=== PATIENT | male | born 1990 | race American Indian/Alaskan Native ===

== ENCOUNTER → 2018-09-06 | Outpatient (REF) | payer MEDICAID ==
[~2018-09-06] MED LIST: AUGM875T28 PO
[2018-09-06 20:08] LABS: ALBUMIN 4.4 GM/DL (3.2-5.2); ALT/SGPT 48 U/L (12-78); BILIRUBIN,TOTAL 0.9 MG/DL (0.2-1.0); BLOOD UREA NITROGEN 10 MG/DL (7-18); CALCIUM LEVEL 9.7 MG/DL (8.5-10.1); CARBON DIOXIDE LEVEL 26 MEQ/L (21-32); CHLORIDE LEVEL 97 MEQ/L (98-107); CHOLESTEROL LEVEL 181 MG/DL (<200); CREATININE FOR GFR 0.77 MG/DL (0.70-1.30); FREE T4 1.51 NG/DL (0.76-1.46); GLOMERULAR FILTRATION RATE > 60.0 (>60); GLUCOSE, FASTING 77 MG/DL (70-100); HDL CHOLESTEROL 58 MG/DL (>40); LDL CHOLESTEROL 114 MG/DL (<100); NON-HDL-C 123 MG/DL; POTASSIUM SERUM 4.1 MEQ/L (3.5-5.1); SODIUM LEVEL 134 MEQ/L (136-145); TRIGLYCERIDES LEVEL 44 MG/DL (<150)
[2018-09-06 20:11] LABS: BASO % 0.2 % (0.0-1.0); EOS # 0.1 10^3/uL (0.0-0.50); EOS % 0.6 % (0.0-3.0); HEMATOCRIT 49.9 % (42.0-52.0); HEMOGLOBIN 16.5 g/dl (13.5-17.5); LYMPH # 0.9 10^3/uL (1.5-6.5); LYMPH % 9.9 % (24.0-44.0); MEAN CORPUSCULAR HEMOGLOBIN 29.2 pg (27.0-33.0); MEAN CORPUSCULAR HGB CONC 33.1 g/dl (32.0-36.5); MEAN CORPUSCULAR VOLUME 88.3 fl (80.0-96.0); MONO # 0.7 10^3/uL (0.0-0.8); MONO % 7.4 % (0.0-5.0); NEUTROPHILS # 7.7 10^3/uL (1.8-7.7); NEUTROPHILS % 81.7 % (36.0-66.0); PLATELET COUNT, AUTOMATED 234 10^3/uL (150-450); RED BLOOD COUNT 5.65 10^6/uL (4.30-6.10); TOTAL 25(OH) VITAMIN D 15.3 NG/ML (30.0-100.0); WHITE BLOOD COUNT 9.4 10^3/uL (4.0-10.0)
[2018-09-06 21:30] LABS: HEMOGLOBIN A1c 5.5 %
[2018-09-07 09:48] LABS: HEPATITIS B SURFACE ANTIBODY POSITIVE (POSITIVE)
[2018-09-07 09:55] LABS: HEPATITIS B SURFACE ANTIGEN NEGATIVE (NEGATIVE)
[2018-09-07 10:23] LABS: HIV 1&2 SCREEN CENTAUR NEGATIVE (NEGATIVE)
[2018-09-11 08:06] LABS: HEPATITIS A IgG TOTAL Positive (Negative); HEPATITIS B CORE ANTIBODY IGG Negative (Negative); HEPATITIS C QUANTITATION 2795110 IU/mL (.); HEPATITIS C VIRUS GENOTYPE 1b (.); HSV IgM TYPES 1&2 <0.91 Ratio (0.00-0.90); Lyme Disease IgG/IgM Antibodie <0.91 ISR (0.00-0.90); Lyme Disease IgM Ab Quantitati <0.80 index (0.00-0.79)
== END ==
LOC: M LAB REF 17:40
PROVIDERS: ATTEND Family Medicine
DX: F11.21 Opioid dependence, in remission (principal); Z13.228 Encounter for screening for other metabolic disorders; B19.20 Unspecified viral hepatitis C without hepatic coma

== ENCOUNTER 2018-09-15 06:55 | Emergency (ER) | payer MEDICAID ==
[~2018-09-15] VITALS: Ht 167.6 cm; Wt 37.3 kg
[2018-09-15 06:56] VITALS: BP 148/81
[2018-09-15] MEDS ORDERED: AUGM875T28 PO (07:23)
[2018-09-15] MEDS ORDERED: IBUPROFEN 600 MG TAB PO ONE (07:30)
== END 2018-09-15 07:33 | disposition home or self-care (01) ==
LOC: M ED 06:55
DX: K02.9 Dental caries, unspecified (principal); K05.10 Chronic gingivitis, plaque induced; K13.79 Other lesions of oral mucosa; B19.20 Unspecified viral hepatitis C without hepatic coma; F17.210 Nicotine dependence, cigarettes, uncomplicated

== ENCOUNTER 2018-10-13 21:28 | Inpatient (IN) | payer MEDICAID, SELFPAY ==
[~2018-10-13] VITALS: Ht 167.6 cm; Wt 75.0 kg
[2018-10-13 21:29] VITALS: BP 165/105
[2018-10-13] MEDS ORDERED: CLINDAMYCIN 600 MG in APPROPRIATE DILUENT 1 EA IV ONE (22:15)
[2018-10-13] MEDS ORDERED: NS 1,000 ML IV ONE (22:15)
[2018-10-13] MEDS ORDERED: KETOROLAC 30 MG/ML VIAL (J1885) IV ONE (22:15)
[2018-10-13 22:51] LABS: HEMOGLOBIN 12.7 g/dl (13.5-17.5); MEAN CORPUSCULAR HEMOGLOBIN 29.5 pg (27.0-33.0); MEAN CORPUSCULAR HGB CONC 34.3 g/dl (32.0-36.5); PLATELET COUNT, AUTOMATED 258 10^3/uL (150-450); WHITE BLOOD COUNT 20.9 10^3/uL (4.0-10.0)
[2018-10-13 23:33] LABS: ALT/SGPT 19 U/L (12-78); BILIRUBIN,DIRECT 0.1 MG/DL (0.0-0.2); BILIRUBIN,TOTAL 0.2 MG/DL (0.2-1.0); BLOOD UREA NITROGEN 8 MG/DL (7-18); CALCIUM LEVEL 8.2 MG/DL (8.5-10.1); CARBON DIOXIDE LEVEL 30 MEQ/L (21-32); CHLORIDE LEVEL 99 MEQ/L (98-107); CREATININE FOR GFR 0.61 MG/DL (0.70-1.30); GLOMERULAR FILTRATION RATE > 60.0 (>60); GLUCOSE, FASTING 146 MG/DL (70-100); POTASSIUM SERUM 3.2 MEQ/L (3.5-5.1); SODIUM LEVEL 136 MEQ/L (136-145); TOTAL PROTEIN 6.7 GM/DL (6.4-8.2)
[2018-10-13] MEDS ORDERED: ISOVUE-370 76% 100ML VIAL (Q9967) As Ordered ONE (23:46)
--- NOTE | 2018-10-14 00:21 | REPVR ---
EXAM: CT Neck With Contrast EXAM DATE/TIME: 10/13/2018 11:46 PM CLINICAL HISTORY: 28 years old, male; Pain; Other: Chin swelling TECHNIQUE: Imaging protocol: Axial computed tomography images of the neck with intravenous contrast. Coronal and sagittal reformatted images were created and reviewed. Radiation optimization: All CT scans at this facility use at least one of these dose optimization techniques: automated exposure control; mA and/or kV adjustment per patient size (includes targeted exams where dose is matched to clinical indication); or iterative reconstruction. Contrast material: ISO; Contrast volume: 100 ml; Contrast route: AC; COMPARISON: No relevant prior studies available. FINDINGS: Nasopharynx: Normal. Oropharynx: Thickening of both tonsillar pillars may indicate the presence of adenopathy. Hypopharynx: Normal. Larynx: Normal. Normal epiglottis. Retropharyngeal space: Normal. Submandibular/Parotid glands: Normal. Glands are normal in size. Thyroid: Normal. No enlarged or calcified nodules. Lymph nodes: Normal. No lymphadenopathy. Trachea: Visualized trachea is unremarkable. Lungs: Normal as visualized. Vasculature: No acute findings. Bones/joints: Normal. No acute fracture. Soft tissues: Subcutaneous edema demonstrated along the anterior and left lateral margin of the left hemimandible, and to lesser degree along the right, likely infectious. Skin thickening consistent with cellulitis. No well-defined abscess demonstrated. In the absence of any known trauma finding likely of dental origin. IMPRESSION: Subcutaneous edema demonstrated along the anterior and left lateral margin of the left hemimandible, and to lesser degree along the right, likely infectious. Skin thickening consistent with cellulitis. No well-defined abscess demonstrated. In the absence of any known trauma finding likely of dental origin. Electronically signed by: Angel Gage On 10/14/2018 00:21:15 AM
--- NOTE | 2018-10-14 00:26 | REPVR ---
EXAM: CT Maxillofacial With Contrast EXAM DATE/TIME: 10/13/2018 11:42 PM CLINICAL HISTORY: 28 years old, male; Jaw pain; Patient HX: Cellulitis chin; Additional info: Swelling TECHNIQUE: Imaging protocol: Axial computed tomography images of the face with intravenous contrast. Coronal and sagittal reformatted images were created and reviewed. Radiation optimization: All CT scans at this facility use at least one of these dose optimization techniques: automated exposure control; mA and/or kV adjustment per patient size (includes targeted exams where dose is matched to clinical indication); or iterative reconstruction. Contrast material: ISO; Contrast volume: 100 ml; Contrast route: AC; COMPARISON: CT Maxilofacial w/out contrast 11/22/2011 3:09 AM FINDINGS: Orbits: No acute intraorbital abnormality. Globes are unremarkable. Sinuses: Small retention cyst right maxillary sinus. Bones/joints: No acute fracture. Lymph nodes: Enlarged tonsillar pillars bilaterally may indicate the presence of adenopathy. No abscess demonstrated. Prominent submental lymph nodes measure up to 10 mm on the right and 11 mm on the left. Soft tissues: Redemonstration of soft tissue edema along the course of the left hemimandible, anterior mandible and to lesser degree on the right. No well-defined abscess demonstrated. IMPRESSION: 1. Redemonstration of soft tissue edema along the course of the left hemimandible, anterior mandible and to lesser degree on the right. No well-defined abscess demonstrated. 2. Prominent left submandibular lymph node. Electronically signed by: Angel Gage On 10/14/2018 00:25:31 AM
--- NOTE | 2018-10-14 01:20 | HPEPDOC ---
[facility] Medical History & Physical Date of Admission Oct 13, 2018 Date of Service: Oct 13, 2018 History and Physical PCP: [facility] CHIEF COMPLAINT: Jaw swelling HISTORY OF PRESENT ILLNESS: Patient is a 28-year-old man who reportedly had what he thought was to sit on his chin he was trying to pop it without any success and over the last 3-4 days it is gradually swollen become increasingly red. He tells me that he was having fevers and chills at home yesterday but did not check his temperature. He denies shortness of breath or difficulty with swallowing. Otherwise patient denies weight loss, hair loss, headache, visual changes, chest pain, cough, nausea, vomiting, diarrhea, abdominal pain, muscle aches, worsening arthritis, change in mood PAST MEDICAL HISTORY: 1. Hepatitis C. 2. Tobacco abuse. 3. IV drug use. HOME MEDICATIONS: Please see below. ALLERGIES: Please see below PAST SURGICAL HISTORY: 1. None. SOCIAL HISTORY: Tobacco use: Active smoker 12 pack years. ETOH: Denies, Illicit drug use: Denies past documented history of IV drug abuse, Tattoos done unprofessionally: Denies, CODE STATUS: Full code FAMILY HISTORY:Reviewed and noncontributory REVIEW OF SYSTEMS: 10 systems reviewed and negative other than HPI PHYSICAL EXAMINATION: VITAL SIGNS: Temperature 97.9, pulse 118, respiratory rate 16, blood pressure 165/105, pulse oximetry 95% on room air. GENERAL: Pleasant young slim man sitting up in bed awake alert oriented speaking in complete sentences no acute distress HEENT: Moist mucous membranes no elevation and CVP, impressively swollen jaw with significant erythema and tenderness in the area 0.3 x 0.3 mm purulent drainage, intense swelling of the lower lip with pus noted in the oral cavity is well anterior to his lower gumline CARDIOVASCULAR: S1 S2 tachycardic. RESPIRATORY: Clear to auscultation bilaterally. ABDOMINAL: Bowel sounds present abdomen soft and nontender EXTREMITIES: No clubbing cyanosis or edema NEUROLOGICAL: Spontaneously moves all 4 extremities cranial 2 through 12 grossly intact no gross focal deficits appreciated PSYCHOLOGICAL: Appropriate LABORATORY DATA: See below. MICROBIOLOGY: Please see below. IMAGING: CT neck with contrast: CT maxillofacial with contrast ASSESSMENT & PLAN: This is a 28-year-old man with cellulitis with abscess of the jaw. PROBLEMS: 1. Cellulitis with abscess of the jaw: Given the purulent drainage anteriorly as well as within the oral cavity I do not some concern for communicating fistula secondary to the infection. Given the patient's young age and the possible need for surgical intervention would recommend CT scans of the neck and jaw with contrast as well as ENT consultation for surgical evaluation and possible need for incision and drainage. Patient certainly would benefit from IV fluids as well as empiric antibiotics with vancomycin and meropenem will also check a MRSA screen of the nares as well as blood cultures and wound cultures. We'll provide pain control and continuous O2 monitoring 2. Hepatitis C: Never received treatment was told his levels are too low he did not need it 3.Tobacco abuse: Cessation counseling provided 4. 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 5.Hypokalemia: We will replete by mouth check magnesium level DVT PROPHYLAXIS:Early ambulation, teds DISPOSITION: [facility] floor with continuous O2 monitoring Vital Signs Vital Signs Date Time Temp Pulse Resp B/P (MAP) Pulse Ox O2 Delivery O2 Flow Rate FiO2 10/13/18 21:34 10/13/18 21:29 97.9 118 16 95 Room Air Laboratory Data Labs 24H Laboratory Tests 2 10/13/18 22:33: Nucleated Red Blood Cells % (auto) 0.0, Anion Gap 7L, Glomerular Filtration Rate > 60.0, Calcium Level 8.2L, Aspartate Amino Transf (AST/SGOT) 12, Alanine Aminotransferase (ALT/SGPT) 19, Alkaline Phosphatase 89, Total Bilirubin 0.2, Direct Bilirubin 0.1, Total Protein 6.7, Albumin 3.0L, Albumin/Globulin Ratio 0.81L CBC/BMP Laboratory Tests 10/13/18 22:33 Red Blood Count 4.30, Mean Corpuscular Volume 86.0, Mean Corpuscular Hemoglobin 29.5, Mean Corpuscular Hemoglobin Concent 34.3, Red Cell Distribution Width 12.4 Microbiology Microbiology 10/13/18 Blood Culture, Received Pending 10/13/18 Blood Culture, Received Pending Home Medications No Active Prescriptions or Reported Meds Allergies Coded Allergies: No Known Allergies (Unverified , 09/15/18) A-FIB/CHADSVASC A-FIB History Current/History of A-Fib/PAF?: No DAJA MORELOS MD Oct 14, 2018 00:01
[2018-10-14] MEDS ORDERED: BACT800T5 PO (01:22)
--- NOTE | 2018-10-14 01:25 | DS.PDOC ---
Discharge Summary General Date of Admission Oct 14, 2018 at 00:47 Date of Discharge 10/14/2018 Discharge Summary DISCHARGE DIAGNOSIS: Facial cellulitis SECONDARY DIAGNOSIS: 1.Hepatitis C 2. Tobacco abuse 3. Hypokalemia 4. History of substance abuse PROCEDURES PERFORMED DURING STAY: None. CONSULTANTS: ENT called patient left AGAINST MEDICAL ADVICE prior to evaluation HOSPITAL COURSE: Patient is a 28-year-old man who presented with jaw swelling he had a pimple on his job that he tried to pop was unsuccessful progressively grew swollen over several days he had subjective fevers and chills at home and presented to the emergency room there is concern for large abscess he did have pus draining from his job as well as inside his oral cavity ENT with consult of the reviewed the CT scan images with me however the patient at the time of admission suddenly elected to leave the hospital AGAINST MEDICAL ADVICE stating that he had returned somebody's car and that he would be returning soon for admission he was in the next few hours. He was advised that he is at risk for and this serious infection likely cause permanent damage or untre ated. DISCHARGE MEDICATIONS: Please see below. ALLERGIES: Please see below. See H&P for physical exam and assessment and plan DISCHARGE CONDITION: Not improved unstable PROGNOSIS: Poor unless returns for treatment of admission FOLLOW UP: Return to a soon as possible, ENT consultation TIME SPENT ON DISCHARGE: 20 minutes Vital Signs/I&Os Vital Signs Date Time Temp Pulse Resp B/P (MAP) Pulse Ox O2 Delivery O2 Flow Rate FiO2 10/13/18 21:34 10/13/18 21:29 97.9 118 16 95 Room Air Laboratory Data Labs 24H Laboratory Tests 2 10/13/18 22:33: Nucleated Red Blood Cells % (auto) 0.0, Anion Gap 7L, Glomerular Filtration Rate > 60.0, Calcium Level 8.2L, Aspartate Amino Transf (AST/SGOT) 12, Alanine A minotransferase (ALT/SGPT) 19, Alkaline Phosphatase 89, Total Bilirubin 0.2, Direct Bilirubin 0.1, Total Protein 6.7, Albumin 3.0L, Albumin/Globulin Ratio 0.81L CBC/BMP Laboratory Tests 10/13/18 22:33 Red Blood Count 4.30, Mean Corpuscular Volume 86.0, Mean Corpuscular Hemoglobin 29.5, Mean Corpuscular Hemoglobin Concent 34.3, Red Cell Distribution Width 12.4 Microbiology Microbiology 10/13/18 Blood Culture, Received Pending 10/13/18 Blood Culture, Received Pending Discharge Medications Scheduled Sulfamethoxazole/Trimethoprim (Bactrim Ds Tablet) 1 Each Tablet, 1 TAB PO BID Allergies Coded Allergies: No Known Allergies (Unverified , 09/15/18) DAJA MORELOS MD Oct 14, 2018 01:25
== END 2018-10-14 01:24 | disposition left against medical advice (07) | DRG 383 ==
LOC: M ED 21:28 → M ED INP 10-14 00:47
PROVIDERS: ADMIT Internal Medicine; ATTEND Internal Medicine
DX: L03.211 Cellulitis of face (principal); E87.6 Hypokalemia; F17.200 Nicotine dependence, unspecified, uncomplicated

== ENCOUNTER 2018-10-14 18:33 | Emergency (ER) | payer SELFPAY ==
[~2018-10-14] VITALS: Ht 167.6 cm; Wt 75.0 kg
[~2018-10-14 18:33] MED LIST changes: +BACT800T5 PO
[2018-10-14 18:34] VITALS: BP 180/99
== END 2018-10-14 19:45 | disposition left against medical advice (07) ==
LOC: M ED 18:33
DX: Z53.29 Procedure and treatment not carried out because of patient's decision for other reasons (principal)

== ENCOUNTER 2018-10-14 20:42 | Inpatient (IN) | payer SELFPAY ==
[~2018-10-14] VITALS: Ht 167.6 cm; Wt 72.8 kg
[2018-10-14] MEDS ORDERED: KETOROLAC 30 MG/ML VIAL (J1885) IV ONE (21:30)
[2018-10-14] MEDS ORDERED: CLINDAMYCIN 600 MG in APPROPRIATE DILUENT 1 EA IV ONE (21:30)
[2018-10-14 21:42] LABS: HEMATOCRIT 40.6 % (42.0-52.0); HEMOGLOBIN 13.7 g/dl (13.5-17.5); MEAN CORPUSCULAR HEMOGLOBIN 28.8 pg (27.0-33.0); MEAN CORPUSCULAR HGB CONC 33.7 g/dl (32.0-36.5); MEAN CORPUSCULAR VOLUME 85.5 fl (80.0-96.0); PLATELET COUNT, AUTOMATED 353 10^3/uL (150-450); RED BLOOD COUNT 4.75 10^6/uL (4.30-6.10); WHITE BLOOD COUNT 21.3 10^3/uL (4.0-10.0)
[2018-10-14 22:09] LABS: BLOOD UREA NITROGEN 7 MG/DL (7-18); CARBON DIOXIDE LEVEL 30 MEQ/L (21-32); CHLORIDE LEVEL 99 MEQ/L (98-107); CREATININE FOR GFR 0.76 MG/DL (0.70-1.30); GLOMERULAR FILTRATION RATE > 60.0 (>60); GLUCOSE, FASTING 201 MG/DL (70-100); POTASSIUM SERUM 3.5 MEQ/L (3.5-5.1); SODIUM LEVEL 136 MEQ/L (136-145)
[2018-10-14] MEDS ORDERED: oxyCODONE 5MG TAB PO PRN (23:15)
[2018-10-14] MEDS: NS 1,000 ML IV SCH (23:15)
[2018-10-14] MEDS ORDERED: IBUPROFEN 600 MG TAB PO PRN (23:15)
--- NOTE | 2018-10-14 23:22 | IPNPDOC ---
Date Seen The patient was seen on 10/14/18. Progress Note PCP: [facility] CHIEF COMPLAINT: Jaw swelling HISTORY OF PRESENT ILLNESS: Patient is a 28-year-old man who was first seen in the emergency room yesterday, he was admitted for facial cellulitis and abscess T scans were completed ENT with consult of the reviewed his CT imaging however prior to completion of his admission orders the patient elected to leave the hospital AGAINST MEDICAL ADVICE a safe disposition as possible with her rates ranged it was strongly recommended the patient stay for admission and repeat present to the hospital. He presented to the emergency room earlier this evening and left without being seen once again. He returned to the emergency room later this evening requesting admission recommended from the previous day. He tells me that he has been squeezing his chin and draining significant amount of pus from it throughout the day. Initially he had what he thought was a pimple on his chin which he was trying to pop without any success and over the last 3-4 days it is gradually swollen become increasingly red. He tells me that he was having fevers and chills at home yesterday but did not check his temperature. He denies shortness of breath or difficulty with swallowing. Otherwise patient denies weight loss, hair loss, headache, visual changes, chest pain, cough, nausea, vomiting, diarrhea, abdominal pain, muscle aches, worsening arthritis, change in mood PAST MEDICAL HISTORY: 1. Hepatitis C. 2. Tobacco abuse. 3. IV drug use. HOME MEDICATIONS: Please see below. ALLERGIES: Please see below PAST SURGICAL HISTORY: 1. None. SOCIAL HISTORY: Tobacco use: Active smoker 12 pack years. ETOH: Denies, Illicit drug use: Denies past documented history of IV drug abuse, Tattoos done unprofessionally: Denies, CODE STATUS: Full code FAMILY HISTORY:Reviewed and noncontributory REVIEW OF SYSTEMS: 10 systems reviewed and negative other than HPI PHYSICAL EXAMINATION: VITAL SIGNS: Temperature 98.7, pulse 118, respiratory rate 18, blood pressure 145/98, pulse oximetry 96% on room air. GENERAL: Pleasant young slim man sitting up in bed awake alert oriented speaking in complete sentences no acute distress HEENT: Moist mucous membranes no elevation and CVP, impressively swollen jaw with significant erythema and tenderness in the area 0.3 x 0.3 mm purulent drainage, intense swelling of the lower lip with pus noted in the oral cavity is well anterior to his lower gumline. It does appear to be somewhat less swollen and yesterday he appears have expressed significant amount of pus from it does appear to be new areas of opening and drainage CARDIOVASCULAR: S1 S2 tachycardic. RESPIRATORY: Clear to auscultation bilaterally. ABDOMINAL: Bowel sounds present abdomen soft and nontender EXTREMITIES: No clubbing cyanosis or edema NEUROLOGICAL: Spontaneously moves all 4 extremities cranial 2 through 12 grossly intact no gross focal deficits appreciated PSYCHOLOGICAL: Appropriate LABORATORY DATA: See below. MICROBIOLOGY: Please see below. IMAGING: CT neck with contrast:Subcutaneous edema demonstrated along the anterior and left lateral margin of the left hemimandible, and to lesser degree along the right, likely infectious. Skin thickening consistent with cellulitis. No well-defined abscess demonstrated. In the absence of any known trauma finding likely of dental origin. CT maxillofacial with contrast:1. Redemonstration of soft tissue edema along the course of the left hemimandible, anterior mandible and to lesser degree on the right. No well-defined abscess demonstrated. 2. Prominent left submandibular lymph node. ASSESSMENT & PLAN: This is a 28-year-old man with cellulitis with abscess of the jaw. PROBLEMS: 1. Cellulitis with abscess of the jaw: Does appear to be improved today more actively draining. There is areas of communication and drainage, I have restarted ENT once again who've agreed to see the patient morning in consultation. 40 reviewed his images. I'll place on empiric antibiotics cover for staph and strep I'll check a MRSA screen of the nares. Blood cultures have been drawn previously I will order wound cultures provide pain control and gentle IV fluids. I recommended warm compress to help with the drainage 2. Hepatitis C: Never received treatment was told his levels are too low he did not need it 3.Tobacco abuse: Cessation counseling provided 4. 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 5.Hypokalemia: From previously drawn blood work appears to have resolved. DVT PROPHYLAXIS:Early ambulation, teds DISPOSITION: MedSurg floor VS, I&O, 24H, Fishbone Vital Signs/I&O Vital Signs Date Time Temp Pulse Resp B/P (MAP) Pulse Ox O2 Delivery O2 Flow Rate FiO2 10/14/18 21:35 10/14/18 20:45 98.7 118 18 96 Room Air Laboratory Data 24H LABS Laboratory Tests 2 10/14/18 21:32: Nucleated Red Blood Cells % (auto) 0.0, Anion Gap 7L, Glomerular Filtration Rate > 60.0, Blood Urea Nitrogen 7, Creatinine 0.76, Sodium Level 136, Potassium Level 3.5, Chloride Level 99, Carbon Dioxide Level 30, Calcium Level 9.0 CBC/BMP Laboratory Tests 10/14/18 21:32 Red Blood Count 4.75, Mean Corpuscular Volume 85.5, Mean Corpuscular Hemoglobin 28.8, Mean Corpuscular Hemoglobin Concent 33.7, Red Cell Distribution Width 12.5, Calcium Level 9.0 DAJA MORELOS MD Oct 14, 2018 23:22
[2018-10-14] MEDS ORDERED: VANCOMYCIN HCL 1,000 MG, VIAL MATE ADAPTER 1 EACH in D5W 250 ML IV ONE (23:30)
[2018-10-15 01:56] VITALS: BP 130/97
[2018-10-15] MEDS ORDERED: VANCOMYCIN HCL 750 MG, VIAL MATE ADAPTER 1 EACH in D5W 250 ML IV ONE (02:00)
--- NOTE | 2018-10-15 03:19 | PHACANCOPD ---
PHARMACY VANCOMYCIN DOSING Pt Demographics Demographics Patient Age:28 , Weight:72.800 , Gender: male Adjusted Body Weight Date: 10/15/18, Adjusted Body Weight: [70.9] Kg(ACTUAL WT) Vancomycin Vancomycin indication: FACIAL CELLULITIS Vancomycin Target Ranges: 10-20 mcg/ml Vancomycin Load Y/N: Yes Load Dose Date Time Vancomycin Load Dose: 1750MG Date: 10/15 Time: 02-0 Vancomycin Dose Date: 10/15/18. Current Vancomycin Dose: [1 GM Q8H] Intermittent Dosing?: No Labs Labs Laboratory Tests 10/14/18 21:32 Red Blood Count 4.75, Mean Corpuscular Volume 85.5, Mean Corpuscular Hemoglobin 28.8, Mean Corpuscular Hemoglobin Concent 33.7, Red Cell Distribution Width 12.5, Calcium Level 9.0 Micro Microbiology 10/15/18 MRSA Screen, Received Pending 10/15/18 Gram Stain, Received Pending 10/15/18 Wound Culture, Received Pending Creatinine Clearance Date:10/15/18. Creatinine Clearance: [139]. Assessment and Plan Maintaining Current Dose?: Yes Reason for dose change: No Dose Change Pharmacist Note Pharmacist Note Date: 10/15/18. Pharmacist note:28YOM,SCR=0.74,KCCE=501(CALCULATED),Admitted w/facial cellulitis.tx w/Meropenem 1 gm IV Q8H and Pharmacy dosed Vancomycin. 1750 mg Vanco load administered 10/15 @ 01-0200, then will begin regimen of 1 gram IV Q8H@1200. First trough is scheduled for 10/16@0300(prior to the 4th dose)-will continue to follow and make adjustments as needed CRIS DENNIS PHARMACY Oct 15, 2018 03:19
[2018-10-15] MEDS: MEROPENEM INJ 1 GM in APPROPRIATE DILUENT 1 EA IV SCH ×3 (05:01→18:13)
[2018-10-15 06:00] VITALS: BP 140/73
[2018-10-15 08:59] LABS: HEMATOCRIT 38.9 % (42.0-52.0); HEMOGLOBIN 13.2 g/dl (13.5-17.5); MEAN CORPUSCULAR HEMOGLOBIN 29.5 pg (27.0-33.0); MEAN CORPUSCULAR HGB CONC 33.9 g/dl (32.0-36.5); MEAN CORPUSCULAR VOLUME 86.8 fl (80.0-96.0); PLATELET COUNT, AUTOMATED 310 10^3/uL (150-450); RED BLOOD COUNT 4.48 10^6/uL (4.30-6.10); WHITE BLOOD COUNT 12.1 10^3/uL (4.0-10.0)
[2018-10-15] MEDS: NS 1,000 ML IV SCH ×2 (12:35→20:17)
[2018-10-15] MEDS: VANCOMYCIN HCL 1,000 MG, VIAL MATE ADAPTER 1 EACH in D5W 250 ML IV SCH ×2 (12:54→20:15)
--- NOTE | 2018-10-15 13:46 | IPNPDOC ---
Subjective Date Seen The patient was seen on 10/15/18. Subjective Chief Complaint/HPI Patient seen and examined at bedside. Reports that he has had less drainage from the infection/wound on his chin this morning. States that the pain is well controlled at this time. Denies any other acute complaints at this time. Objective Physical Examination General Exam: Positive: Alert, Cooperative, No Acute Distress ENT Exam: Positive: Other ENT (Chin and Jaw line noted to be significantly swollen and erythematous; Left greater than Right. 0.3 x 0.2cm open wound noted with no drainage on the left side of the chin/jaw area. No tenderness to palpation.) Chest Exam: Positive: Clear to auscultation, Normal air movement Heart Exam: Positive: Rate Normal, Normal S1, Normal S2 Abdomen Exam: Positive: Soft; Negative: Tenderness Extremity Exam: Negative: Tenderness, Swelling Psych Exam: Positive: Oriented x 3 Assessment /Plan Plan/VTE VTE Prophylaxis Ordered?: Yes Plan Cellulitis of the Jaw CT Face & Neck revealed soft tissue edema consistent with cellulitis along the course of the left hemimandible, anterior mandible and to a lesser degree on the right. No well-defined abscess demonstrated. Blood cultures drawn from the ER on 10/13/18 remained negative MRSA screen pending Wound culture pending We will continue the patient on empiric antibiotics coverage with vancomycin and meropenem WBC improved this AM, we will trend CRP markers Patient states that the site has been draining, and notes decreased pain ENT was consulted on admission by the admitting provider--We will follow up with their recommendations Hepatitis C Follow-up as an outpatient Tobacco abuse Counseled on cessation History of substance abuse Counseled on cessation DVT PROPHYLAXIS SCDs/TEDs, Ambulation encouraged Disposition-pending continued clinical improvement, ENT evaluation VS, I&O, 24H, Fishbone Vital Signs/I&O Vital Signs Date Time Temp Pulse Resp B/P (MAP) Pulse Ox O2 Delivery O2 Flow Rate FiO2 10/15/18 06:00 98.7 87 16 140/73 (95) 97 10/15/18 01:08 Room Air I&O- Last 24 Hours up to 6 AM 10/15/18 06:00 Intake Total 845 ml Output Total 625 ml Balance 220 ml Laboratory Data 24H LABS Laboratory Tests 2 10/14/18 21:32: Nucleated Red Blood Cells % (auto) 0.0, Anion Gap 7L, Glomerular Filtration Rate > 60.0, Blood Urea Nitrogen 7, Creatinine 0.76, Sodium Level 136, Potassium Level 3.5, Chloride Level 99, Carbon Dioxide Level 30, Calcium Level 9.0 10/15/18 08:37: Nucleated Red Blood Cells % (auto) 0.0, C-Reactive Protein, Quantitative 10.20H CBC/BMP Laboratory Tests 10/14/18 21:32 Red Blood Count 4.75, Mean Corpuscular Volume 85.5, Mean Corpuscular Hemoglobin 28.8, Mean Corpuscular Hemoglobin Concent 33.7, Red Cell Distribution Width 12.5, Calcium Level 9.0 10/15/18 08:37 Red Blood Count 4.48, Mean Corpuscular Volume 86.8, Mean Corpuscular Hemoglobin 29.5, Mean Corpuscular Hemoglobin Concent 33.9, Red Cell Distribution Width 12.6 Microbiology Microbiology 10/15/18 MRSA Screen, Received Pending 10/15/18 Gram Stain - Final, Resulted 10/15/18 Wound Culture, Resulted Pending VENESSA CLARK MD Oct 15, 2018 13:45
[2018-10-15 14:00] VITALS: BP 139/77
== END 2018-10-15 21:22 | disposition left against medical advice (07) | DRG 383 ==
LOC: M ED 20:42 → M ED INP 23:09 → M MS5PR 10-15 01:54
PROVIDERS: ADMIT Internal Medicine; ATTEND Internal Medicine
DX: L03.211 Cellulitis of face (principal); E87.6 Hypokalemia; M27.2 Inflammatory conditions of jaws; F17.200 Nicotine dependence, unspecified, uncomplicated

== ENCOUNTER 2019-04-15 16:53 | Emergency (ER) | payer OTHER, SELFPAY ==
[~2019-04-15] VITALS: Ht 167.6 cm; Wt 79.1 kg
[2019-04-15] MEDS ORDERED: LIDOCAINE 1% MDV 20ML VIAL INFIL ONE (17:45)
[2019-04-15 18:56] VITALS: BP 145/66
== END 2019-04-15 18:57 | disposition home or self-care (01) ==
LOC: M ED 16:53
DX: S61.211A Laceration without foreign body of left index finger without damage to nail, initial encounter (principal); W26.8XXA Contact with other sharp object(s), not elsewhere classified, initial encounter; Y92.018 Other place in single-family (private) house as the place of occurrence of the external cause; B19.20 Unspecified viral hepatitis C without hepatic coma; F17.210 Nicotine dependence, cigarettes, uncomplicated

== ENCOUNTER → 2019-04-20 | Outpatient (CLI) | payer OTHER ==
[2019-04-20 07:12] LABS: HEMATOCRIT 39.4 % (42.0-52.0); HEMOGLOBIN 12.5 g/dl (13.5-17.5); MEAN CORPUSCULAR HEMOGLOBIN 27.3 pg (27.0-33.0); MEAN CORPUSCULAR HGB CONC 31.7 g/dl (32.0-36.5); PLATELET COUNT, AUTOMATED 232 10^3/uL (150-450); RED BLOOD COUNT 4.58 10^6/uL (4.30-6.10); WHITE BLOOD COUNT 6.5 10^3/uL (4.0-10.0)
[2019-04-20 07:36] LABS: ALBUMIN 3.4 GM/DL (3.2-5.2); ALT/SGPT 26 U/L (12-78); BILIRUBIN,TOTAL 0.2 MG/DL (0.2-1.0); BLOOD UREA NITROGEN 11 MG/DL (7-18); CALCIUM LEVEL 8.5 MG/DL (8.5-10.1); CARBON DIOXIDE LEVEL 27 MEQ/L (21-32); CHLORIDE LEVEL 105 MEQ/L (98-107); CREATININE FOR GFR 0.81 MG/DL (0.70-1.30); GLOMERULAR FILTRATION RATE > 60.0 (>60); GLUCOSE, FASTING 135 MG/DL (70-100); POTASSIUM SERUM 3.6 MEQ/L (3.5-5.1); SODIUM LEVEL 141 MEQ/L (136-145); TOTAL PROTEIN 7.2 GM/DL (6.4-8.2)
--- NOTE | 2019-04-20 08:06 | ECGEPIP ---
[facility] Test Date: 2019-04-20 Pat Name: DORIS MOYER Department: Room: - Gender: Male Head Of Music: CATHY : 1990 Requested By: Moises Mccray Order Number: [id number] Reading MD: Chapin Rodriguez Measurements Intervals [place] Rate: 81 P: 66 RI: 165 QRS: 94 QRSD: 113 T: 58 QT: 396 QTc: 460 Interpretive Statements Normal sinus rhythm with PACS Vertical axis Otherwise normal Comparison tracing not on file Electronically Signed on 04-20-2019 8:05:48 EST by Chapin Rodriguez
[2019-04-20 09:05] LABS: CHLAMYDIA DNA AMPLIFICATION NEGATIVE (NEGATIVE); GC DNA AMPLIFICATION NEGATIVE (NEGATIVE)
[2019-04-21 10:03] LABS: HEPATITIS B SURFACE ANTIGEN NEGATIVE (NEGATIVE)
[2019-04-21 10:31] LABS: HIV 1&2 SCREEN CENTAUR NEGATIVE (NEGATIVE)
[2019-04-21 11:04] LABS: HEPATITIS C VIRUS ABY INDEX > 11.0 INDEX (<0.8)
== END ==
LOC: M LAB 06:33
PROVIDERS: ATTEND Family Medicine
DX: F11.20 Opioid dependence, uncomplicated (principal)

== ENCOUNTER → 2019-11-29 | Outpatient (REF) | payer OTHER ==
[2020-01-09 13:54] LABS: CHLAMYDIA DNA AMPLIFICATION POSITIVE (NEGATIVE); GC DNA AMPLIFICATION NEGATIVE (NEGATIVE)
== END ==
LOC: M LAB REF 09:22
PROVIDERS: ATTEND Surgery
DX: A74.9 Chlamydial infection, unspecified (principal)

== ENCOUNTER → 2020-08-07 | Outpatient (REF) | payer OTHER | LOC: M LAB REF 11:01 | PROVIDERS: ATTEND Surgery | DX: U07.1 COVID-19 (principal) ==